=== PATIENT | male | born 1990 | race Caucasian/White ===

== ENCOUNTER 2021-09-03 13:57 | Emergency (ER) | payer BC ==
[2021-09-03] MEDS ORDERED: Diphtheria,Pertussis(Acell),Tetanus Vaccine 0.5 ML Syringe IM ONE (16:19)
[2021-09-03] MEDS ORDERED: Lidocaine 1% 10 ML MDV INJECT ONE (16:19)
--- NOTE | 2021-09-03 17:05 | EDM.PDOC ---
ED HPI GENERAL MEDICAL PROBLEM - General Chief Complaint: Laceration Stated Complaint: RT POINTER FINGER LAC Time Seen by Provider: 09/03/21 16:12 Source of Information: Reports: Patient History Limitations: Reports: No Limitations - History of Present Illness INITIAL COMMENTS - FREE TEXT/NARRATIVE: 31-year-old male presents the emergency department today with complaints of a la ceration to his right index finger just distal to the MCP joint. Patient states that he was sharpening a knife to prepare for butchering when the knife slipped out of the sharpener and he sliced his finger. Has full range of motion and strength to the finger. Patient is unsure when his last tetanus shot was given. Right Finger-Index Pain Score (Numeric/FACES): 2 - Related Data Allergies Allergy/AdvReac Type Severity Reaction Status Date / Time No Known Allergies Allergy Verified 09/03/21 14:55 Home Meds: Home Meds Fluticasone/Salmeterol [Advair 100-50] 1 - 2 puff INH BID 09/03/21 [History] Past Medical History Respiratory History: Reports: Asthma - Infectious Disease History Infectious Disease History: Reports: None Social & Family History - Tobacco Use Tobacco Use Status *Q: Current Every Day Tobacco User Years of Tobacco use: 11 Packs/Tins Daily: 0.3 - Caffeine Use Caffeine Use: Reports: Coffee, Energy Drinks, Soda, Tea - Recreational Drug Use Recreational Drug Use: No ED ROS GENERAL - Review of Systems Review Of Systems: Comprehensive ROS is negative, except as noted in HPI. ED EXAM, SKIN/RASH Exam: See Below Exam Limited By: No Limitations General Appearance: Alert, WD/WN, No Apparent Distress Ears: Normal External Exam, Hearing Grossly Normal Nose: Normal Inspection Throat/Mouth: Normal Inspection, Normal Lips, Normal Voice, No Airway Compromise Head: Atraumatic Neck: Normal Inspection, Supple Respiratory/Chest: No Respiratory Distress, Lungs Clear, No Accessory Muscle Use Cardiovascular: Normal Peripheral Pulses, Regular Rate, Rhythm GI/Abdominal: No Distention (Male) Exam: Deferred Rectal (Males) Exam: Deferred Back Exam: Normal Inspection Extremities: Normal Range of Motion, Other (4 cm laceration noted to dorsal asp ect of right proximal index finger) Neurological: Alert, Oriented, Normal Cognition Psychiatric: Normal Affect, Normal Mood Skin: Warm, Dry, Normal Color, No Rash, Wound/Incision (4 cm laceration noted to dorsal aspect of right proximal index finger) Location, Skin: Upper Extremity, Right Lymphatic: No Adenopathy ED SKIN PROCEDURES - Laceration/Wound Repair Right Proximal Dorsal Digit - 2nd (Index) Appearance: Superficial Distal NVT: Neuro & Vascular Intact, No Tendon Injury Anesthetic Type: Local Local Anesthesia - Lidocaine (Xylocaine): 1% Plain Local Anesthetic Volume: 5cc Closed with: Sutures Lac/Wound length In cm: 4 Suture Size: 5-0 # of Sutures: 9 Suture Type: Nylon, Interrupted Course - Vital Signs Text/Narrative:: As stated above, patient presents with a 4 cm laceration noted to the right index finger just distal to the MCP joint. CMS is intact and he has full strength and range of motion to index finger. Will require suturing for repair. I have ordered lidocaine 1% and Boostrix. Last Recorded V/S: Last Vital Signs Temp 99.3 F 09/03/21 14:58 Pulse 66 09/03/21 14:58 Resp BP 129/91 H 09/03/21 14:58 Pulse Ox 99 09/03/21 14:58 - Orders/Labs/Meds Orders: Active Orders 24 hr Category Date Time Status Vaccine to be Administered/Admin Charge [RC] ASDIRECTED Care 09/03/21 16:19 Active Meds: Medications Discontinued Medications Generic Name Dose Route Start Last Admin Trade Name Freq PRN Reason Stop Dose Admin Diphtheria/Tetanus/Acell Pertussis 0.5 ml 09/03/21 16:19 09/03/21 16:29 Diphtheria,Pertussis(Acell),Tetanus Vaccine 0.5 Ml Syringe IM 09/03/21 16:20 0.5 ml .ONCE ONE Administration Lidocaine HCl 10 ml 09/03/21 16:19 09/03/21 16:30 Lidocaine 1% 10 Ml Mdv INJECT 09/03/21 16:20 10 ml ONETIME ONE Administration - Re-Assessments/Exams Free Text/Narrative Re-Assessment/Exam: 09/03/21 17:01 Wound was prepped and draped in sterile fashion prior to suturing. Departure - Departure Time of Disposition: 17:03 Disposition: Home, Self-Care 01 Condition: Good Clinical Impression: Laceration of right index finger Qualifiers: Encounter type: initial encounter Damage to nail status: without damage Foreign body presence: without foreign body Qualified Code(s): S61.210A - Laceration without foreign body of right index finger without damage to nail, initial encounter - Discharge Information Instructions: Sutures, [place], or Adhesive Wound Closure, [id number], Laceration Care, Adult, [id number] Referrals: PCP,None [Primary Care Provider] - Additional Instructions: You were seen in the emergency department today with laceration noted to your right index finger. 9 sutures were placed. These need to remain in place for the next 10 days time. Watch for any signs and symptoms such as increased redness, warmth, swelling or pus. Leave the dressing in place for 24 hours. Once you remove the dressing wash the wound twice daily with mild soap such as Dial or Robbie's baby shampoo, pat the wound dry and in place a thin film of bacitracin and a bandage. Return to the ER with any problems or concerns. Sepsis Event Note (ED) - Focused Exam Vital Signs: Vital Signs Temp Pulse BP Pulse Ox 09/03/21 14:58 99.3 F 66 129/91 H 99 - My Orders Last 24 Hours: My Active Orders 09/03/21 16:19 Vaccine to be Administered/Admin Charge [RC] ASDIRECTED - Assessment/Plan Last 24 Hours: My Active Orders 09/03/21 16:19 Vaccine to be Administered/Admin Charge [RC] ASDIRECTED
== END 2021-09-03 17:11 | disposition home or self-care (01) ==
LOC: JD.ED 13:57
DX: S61.210A Laceration without foreign body of right index finger without damage to nail, initial encounter (principal); Z72.0 Tobacco use; Z23 Encounter for immunization; W26.0XXA Contact with knife, initial encounter
CPT/HCPCS: 12002; 90471; 90715; 99282-25